=== PATIENT | female | born 1935 | race Caucasian/White ===

== ENCOUNTER 2021-03-15 17:00 | Emergency (ER) | payer MEDICARE, OTHER ==
--- NOTE | 2021-03-15 17:17 | EDM.PDOC ---
ED HPI GENERAL MEDICAL PROBLEM - General Chief Complaint: Neuro Symptoms/Deficits Stated Complaint: BUZZING SOUND IN LEFT EAR Time Seen by Provider: 03/15/21 17:16 Source of Information: Reports: Patient, Family History Limitations: Reports: No Limitations - History of Present Illness INITIAL COMMENTS - FREE TEXT/NARRATIVE: Lara, 85-year-old female, presents emergency department after developing left- sided buzzing in her ear. She recently moved into [place] and today was spending time unpacking. She denies any strenuous lifting or bending but was removing items to be put away when the incident occurred. She noted a sharp sudden loud sound in her left ear that had associated pain to the left orbit and left baptism region. She denies any loss of vision nor any loss of balance or perception. She contacted her children to come to the apartment as she spent time walking around looking for the cause of the sound she was hearing in her left ear. She states this happened once in the past similar with the sensation of the tinnitus but did not experience the suddenness nor the pain that accompanies this event. Dr. Amezquita at that time removed significant amount of cerumen from the canal and overall resolved the issue entirely. She is using hearing aids chronically and did have them in place at the time. Family members noted no deficit to her when they arrived of concern beyond her normal aging process. She denies any fever chills, recent illness, nor any falls or trauma. Onset: Today Duration: Minutes:, Hour(s):, Constant Location: Reports: Head, Face Quality: Reports: Dull Improves with: Reports: None Context: Reports: Activity Associated Symptoms: Reports: No Other Symptoms - Related Data Allergies Allergy/AdvReac Type Severity Reaction Status Date / Time Penicillins Allergy Cannot Verified 03/15/21 17:33 Remember tetanus toxoid, adsorbed Allergy Cannot Verified 03/15/21 17:33 Remember Home Meds: Home Meds Aspirin [Halfprin] 81 mg PO DAILY 03/03/13 [History] Levothyroxine 175 mcg PO Q2D 03/03/13 [History] Levothyroxine 150 mcg PO Q2D 01/26/16 [History] Meloxicam 7.5 mg PO BID 10/08/20 [History] Past Medical History HEENT History: Reports: Cataract, Impaired Vision Cardiovascular History: Reports: None Gastrointestinal History: Reports: None 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: Musculoskeletal History: Reports: Osteoarthritis Endocrine/Metabolic History: Reports: Hypothyroidism - Past Surgical History HEENT Surgical History: Reports: Cataract Surgery, Oral Surgery GI Surgical History: Reports: Appendectomy Endocrine Surgical History: Reports: None Musculoskeletal Surgical History: Reports: Hip Replacement, Knee Replacement Social & Family History - Family History Family Medical History: No Pertinent Family History - Caffeine Use Caffeine Use: Reports: Coffee, Soda Other Caffeine Use: daily coffee and occasional pop ED ROS GENERAL - Review of Systems Review Of Systems: Comprehensive ROS is negative, except as noted in HPI. ED EXAM, GENERAL - Physical Exam Exam: See Below Free Text/Narrative:: Alert, oriented, in no acute distress providing accurate details of the event verified by family. There is no cyanosis nor pallor. PERRLA no icterus no injection. Glasses present. There is no tenderness to the facial bones no scalp. Minimal cerumen in the canals with no evidence of irritation to the tympanic membranes bilateral. She is hard of hearing as she has her hearing aids removed. No facial tenderness. Neck is soft supple no lymphadenopathy no rigidity no bruit no JVD appreciated. Breath sounds are somewhat diminished throughout but no evidence of any wheezes no crackles. Cardiac is S1-S2. With eyes closed in a seated position there is some tremoring/tic noted to the lids bilateral. Nilan Barany testing negative for horizontal nystagmus to either side. No change in the buzzing to the left ear post examination. Course - Vital Signs Last Recorded V/S: Last Vital Signs Temp 97.7 F 03/15/21 17:15 Pulse 60 03/15/21 18:00 Resp 18 03/15/21 17:45 BP 144/72 H 03/15/21 18:00 Pulse Ox 94 L 03/15/21 18:00 - Orders/Labs/Meds Labs: Laboratory Tests 03/15/21 03/15/21 Range/Units 17:47 17:47 WBC 5.72 (5.00-10.00) 10^3/uL RBC 4.16 (3.80-5.50) 10^6/uL Hgb 13.3 D (12.0-16.0) g/dL Hct 40.8 (37.0-47.0) % MCV 98.1 H D (82.0-92.0) fL MCH 32.0 H (27.0-31.0) pg MCHC 32.6 (32.0-36.0) g/dL RDW 13.2 (11.5-14.5) % Plt Count 165 (150-400) 10^3/uL MPV 8.4 (7.4-10.4) fL Immature Gran % (Auto) 0.3 (0.0-5.0) % Neut % (Auto) 62.5 (50.0-70.0) % Lymph % (Auto) 24.8 (20.0-40.0) % Andrew % (Auto) 9.3 H (2.0-8.0) % Eos % (Auto) 1.9 (1.0-3.0) % Baso % (Auto) 1.2 H (0.0-1.0) % Neut # (Auto) 3.57 (2.50-7.00) 10^3/uL Lymph # (Auto) 1.42 (1.00-4.00) 10^3/uL Andrew # (Auto) 0.53 (0.10-0.80) 10^3/uL Eos # (Auto) 0.11 (0.10-0.30) 10^3/uL Baso # (Auto) 0.07 (0.00-0.10) 10^3/uL Immature Gran # (Auto) 0.02 (0.00-0.50) 10^3/uL Sodium 140 (136-145) mmol/L Potassium 3.8 (3.5-5.1) mmol/L Chloride 101 (98-107) mmol/L Carbon Dioxide 30.0 (21.0-32.0) mmol/L Anion Gap 12.8 (5-15) mmol/L BUN 14 (7-18) mg/dL Creatinine 0.86 (0.51-1.17) mg/dL Est Cr Clr Drug Dosing 44.82 mL/min Estimated GFR (MDRD) > 60 mL/min Glucose 107 (70-140) mg/dL Calcium 8.6 L (8.7-10.3) mg/dL Total Bilirubin 0.3 (0.2-1.0) mg/dL AST 23 (15-37) U/L ALT 25 (14-63) U/L Alkaline Phosphatase 62 (46-116) U/L Total Protein 6.5 (6.4-8.2) g/dL Albumin 3.58 (3.40-5.00) g/dL - Re-Assessments/Exams Free Text/Narrative Re-Assessment/Exam: 03/15/21 19:18 no pain elicited in exam or at stay. Departure - Departure Time of Disposition: 18:44 Disposition: Home, Self-Care 01 Condition: Fair Clinical Impression: Tinnitus of left ear Hard of hearing Qualifiers: Hearing loss type: unspecified Laterality: bilateral Qualified Code(s): H91.93 - Unspecified hearing loss, bilateral - Discharge Information *PRESCRIPTION DRUG MONITORING PROGRAM REVIEWED*: Not Applicable *COPY OF PRESCRIPTION DRUG MONITORING REPORT IN PATIENT ТАТЬЯНА: Not Applicable Instructions: Tinnitus, Hearing Loss Referrals: Genoveva Aceves MD [Primary Care Provider] - Forms: ED Department Discharge Additional Instructions: Your lab work as well as a CT of the brain show no acute issues as a cause of the buzzing sensation in your left ear. Tinnitus is more likely as we age as well as more specific to people that already are experiencing some form of a hearing deficit. There is no evidence of any infection nor wax in the ear that may be causing this. Continue medications as directed making sure you drink plenty of water. Contact your hearing aid provider to see what options they can offer you as there have been some new treatments and adjustments in the type of hearing aid used at times. Contact Dr. Amezquita in the clinic for follow-up as needed or discussion of this ongoing issue. Emergency department consideration outside of clinic hours. Sepsis Event Note (ED) - Focused Exam Vital Signs: Vital Signs Temp Pulse Resp BP Pulse Ox 03/15/21 18:00 60 144/72 H 94 L 03/15/21 17:45 60 18 150/85 H 95 03/15/21 17:30 73 18 158/88 H 93 L 03/15/21 17:15 97.7 F 76 20 146/98 H 96 - Problem List & Annotations (1) Hard of hearing SNOMED Code(s): 99566195 Code(s): H91.90 - UNSPECIFIED HEARING LOSS, UNSPECIFIED EAR Status: Chronic Priority: High Current Visit: Yes Qualifiers: Hearing loss type: unspecified Laterality: bilateral Qualified Code(s): H91.93 - Unspecified hearing loss, bilateral (2) Tinnitus of left ear SNOMED Code(s): 90585436 Code(s): H93.12 - TINNITUS, LEFT EAR Status: Acute Priority: High Current Visit: Yes (3) Retro-orbital pain of left eye SNOMED Code(s): 276353625, 132229608 Code(s): H57.12 - OCULAR PAIN, LEFT EYE Status: Resolved Priority: High Current Visit: Yes - Problem List Review Problem List Initiated/Reviewed/Updated: Yes - Assessment/Plan Plan: Your lab work as well as a CT of the brain show no acute issues as a cause of the buzzing sensation in your left ear. Tinnitus is more likely as we age as well as more specific to people that already are experiencing some form of a hearing deficit. There is no evidence of any infection nor wax in the ear that may be causing this. Continue medications as directed making sure you drink plenty of water. Contact your hearing aid provider to see what options they can offer you as there have been some new treatments and adjustments in the type of hearing aid used at times. Contact Dr. Amezquita in the clinic for follow-up as needed or discussion of this ongoing issue. Emergency department consideration outside of clinic hours.
[2021-03-15 18:13] LABS: ANION GAP 12.8 mmol/L (5-15); CHLORIDE,CL 101 mmol/L (98-107); SODIUM,NA 140 mmol/L (136-145)
[2021-03-15 18:17] VITALS: PULSE 60
[2021-03-15 18:18] VITALS: BP 144/72
--- NOTE | 2021-03-15 18:21 | CT ---
[id number] CT/CT Head WO IV EXAM: NONCONTRAST HEAD CT INDICATION: SUDDEN LEFT ORBIT PAIN WITH LOUD NOISE IN LEFT EAR, NOW COMPARISON: None. DISCUSSION: Mild to moderate sized atrophy. Mild multifocal white matter hypoattenuation is nonspecific, but generally ascribed to chronic small vessel ischemia. No mass effect or midline shift. No acute hemorrhage or extra-axial fluid collection. No acute territorial infarct is identified. A limited look at the orbits and paranasal sinuses is unremarkable. IMPRESSION: 1. No acute findings. Steven Petty MD 03/15/21 [id number] Thank you for allowing us to participate in the care of your patient.
== END 2021-03-15 19:15 | disposition home or self-care (01) ==
LOC: KA.ED 17:00
DX: H93.12 Tinnitus, left ear (principal); H91.93 Unspecified hearing loss, bilateral; M19.90 Unspecified osteoarthritis, unspecified site; E03.9 Hypothyroidism, unspecified; Z88.0 Allergy status to penicillin; Z88.7 Allergy status to serum and vaccine; Z79.82 Long term (current) use of aspirin; Z79.899 Other long term (current) drug therapy
CPT/HCPCS: 36415; 70450; 80053; 85025; 99283; 99284-25